=== PATIENT | female | born 1970 | race Caucasian/White ===

== ENCOUNTER → 2016-11-12 | Outpatient (CLI) | payer BC ==
--- NOTE | 2016-11-12 12:18 | DIAGNOSTIC IMAGING REPORT ---
HYSTEROSALPINGOGRAM CLINICAL HISTORY: Primary infertility COMPARISON STUDY: No previous studies for comparison. FINDINGS: 30 seconds of fluoroscopic time was utilized. Contrast was instilled into the uterine cavity. The right fallopian tubes filled a normal fashion but no spillage was visualized. The left fallopian tube filled and there is free spillage. There is equivocal wet at the level of the left cornua. No uterine filling defects are visualized. IMPRESSION: 1. Free spillage on the left. No spillage in the right identified 2. Small web at the level the left cornua Electronically signed by: Darnell Rendon M.D. 11/12/2016 12:16 PM Dictated Date/Time: 11/12/2016 12:15 PM
== END | disposition home or self-care (01) ==
LOC: C.RAD 11:24
PROVIDERS: ATTEND Obstetrics & Gynecology
DX: Z31.41 Encounter for fertility testing (principal)

== ENCOUNTER → 2016-11-13 | Outpatient (CLI) | payer BC | END | disposition home or self-care (01) | LOC: C.PAPS 15:36 | PROVIDERS: ATTEND Obstetrics & Gynecology | DX: Z01.419 Encounter for gynecological examination (general) (routine) without abnormal findings (principal) ==

== ENCOUNTER → 2016-12-03 | Outpatient (CLI) | payer BC | END | disposition home or self-care (01) | LOC: C.LAB1850 10:09 | PROVIDERS: ATTEND Specialist | DX: Z31.41 Encounter for fertility testing (principal); Z13.29 Encounter for screening for other suspected endocrine disorder ==